=== PATIENT | male | born 1960 | race Caucasian/White ===

== ENCOUNTER 2022-05-13 17:56 | Emergency (ER) | payer OTHER ==
[~2022-05-13] VITALS: Ht 185.4 cm; Wt 79.5 kg
[~2022-05-13 17:56] MED LIST: CLEOCIN HC150 MG/CAP PO
[2022-05-13 18:05] VITALS: BP 126/69; TEMP 97.7
[2022-05-13 18:36] VITALS: PULSE 95
[2022-05-23] MEDS ORDERED: NORCO 325 MG-51 TAB PO (15:29)
[2022-05-23] MEDS ORDERED: MOTRIN 600600 MG/TAB PO (15:30)
== END 2022-05-13 18:36 | disposition home or self-care (01) ==
LOC: COL.ER 17:56
DX: R10.32 Left lower quadrant pain (principal); F17.210 Nicotine dependence, cigarettes, uncomplicated

== ENCOUNTER → 2022-05-23 | Day surgery (SDC) | payer OTHER ==
[~2022-05-23] VITALS: Ht 185.4 cm; Wt 73.6 kg
[~2022-05-23] MED LIST changes: +MOTRIN 600600 MG/TAB PO; +NORCO 325 MG-51 TAB PO
[2022-05-23 10:56] VITALS: BP 133/85; PULSE 74; TEMP 97.4
[2022-05-23 15:30] VITALS: BP 121/64; PULSE 79; TEMP 97.3
--- NOTE | 2022-05-23 15:30 | NUR ---
The patient arrived back to [facility] from the recovery room at this time. The patient appears alert and orient and reports minimal pain and no nausea at this time. The patient agrees to try some water and applesauce. The patient has three incision sites that are covered with surgical glue and appear without redness or edema. The patient's significant other was brought back to be at his bedside. Call light is within reach. Denies any further needs.
[2022-05-23 15:45] VITALS: BP 128/67; PULSE 74
--- NOTE | 2022-05-23 15:45 | NUR ---
The patient appears to be tolerating the applesauce and water well. Vital signs appear stable. Significant other remains at his bedside.
[2022-05-23 16:00] VITALS: BP 120/67; PULSE 61
--- NOTE | 2022-05-23 16:00 | NUR ---
The patient ambulated to the bathroom with the stand by assistance of one nurse and his significant other and appeared to tolerate the activity well. The patient voided without difficulty and voices a desire to be discharged home.
--- NOTE | 2022-05-23 16:15 | NUR ---
Discharge instructions were reviewed with the patient and his significant other at this time. They both verbalized understanding and have no questions for the nurse at this time. The patient's IV to his right hand was removed and a pressure dressing was applied to the site. The patient is dressed and ready to be escorted out.
--- NOTE | 2022-05-23 16:25 | NUR ---
The patient was escorted out via wheelchair to a private vehicle by PAKO Chavez. The patient's belongings and discharge paperwork were sent with him. The patient added his discharge signature pages to his discharge folder without the nurses knowledge so there is no written record of the patient's understanding just a verbal understanding betweent he patient, nurse and his significant other, Asha.
== END ==
LOC: SDCO 10:01
DX: K40.90 Unilateral inguinal hernia, without obstruction or gangrene, not specified as recurrent (principal); D17.6 Benign lipomatous neoplasm of spermatic cord; F17.210 Nicotine dependence, cigarettes, uncomplicated
CPT/HCPCS: C1781; J0690; J1100; J1170; J2405; J2704; J2710; J3010; J7120